=== PATIENT | female | born 1980 | race Caucasian/White ===

== ENCOUNTER 2023-04-20 23:25 | Emergency (ER) | payer MEDICAID ==
[~2023-04-20] VITALS: Ht 165.1 cm; Wt 90.9 kg
[2023-04-20 23:30] VITALS: TEMP 98.3
[2023-04-20] MEDS ORDERED: NS 1,000 ML IV ONE (23:45)
[2023-04-20] MEDS ORDERED: Ipratropium 0.02% Neb Soln 0.5 MG/2.5 ML UD IH ONE (23:45)
[2023-04-20] MEDS ORDERED: dexAMETHasone 10 MG/ML VIAL IV ONE (23:45)
[2023-04-20] MEDS ORDERED: Albuterol 0.083% Neb Soln 2.5 MG/3 ML UD IH ONE (23:45)
[2023-04-20 23:54] LABS: BASO # 0.1 K/mm3 (0.0-0.2); EOS # 0.4 K/mm3 (0.0-0.7); EOS % 5.7 % (0.0-4.0); GRAN # 4.6 K/mm3 (1.4-6.5); GRAN % 63.2 % (42.2-75.2); HEMATOCRIT 39.8 % (37.0-47.0); LYMPH # 1.8 K/mm3 (1.2-3.4); LYMPH % 24.1 % (20.0-51.0); MEAN CELL VOLUME 90 fl (80.0-100.0); MEAN CORPUSCULAR HEMOGLOBIN 29 pg (27-31); MEAN CORPUSCULAR HGB CONC 33 g/dl (33.0-37.0); MEAN PLATELET VOLUME 10.3 fl (7.4-10.4); MONO # 0.4 K/mm3 (0.1-0.6); MONO % 5.9 % (1.7-9.3); PLATELET COUNT 257 K/mm3 (130-400); RED BLOOD COUNT 4.44 M/mm3 (4.10-5.30); REDCELL DISTRIBUTION WIDTH-CV 12.4 % (11.5-14.5)
[2023-04-21] MEDS ORDERED: Albuterol 90 MCG/PUFF 8 GM MDI IH ONE (00:15)
[2023-04-21 00:19] LABS: ALANINE AMINOTRANSFERASE 23 U/L (0-55); ALBUMIN 3.7 gm/dL (3.5-5.0); ALKALINE PHOSPHATASE 107 U/L (40-150); ANION GAP 11 mmol/L (7-16); AST,SGOT 20 U/L (5-34); BILIRUBIN,TOTAL 0.4 mg/dL (0.2-1.2); BLOOD UREA NITROGEN 8 mg/dL (7-19); CALCIUM 9.5 mg/dL (8.4-10.2); CARBON DIOXIDE 21 mmol/L (22-29); CHLORIDE 107 mmol/L (98-107); CREATININE, serum 0.85 mg/dL (0.57-1.11); GLUCOSE 69 mg/dL (70-99); POTASSIUM 4.5 mmol/L (3.5-4.5); SODIUM 139 mmol/L (136-145); TOTAL PROTEIN 7.6 gm/dL (6.2-8.1)
[2023-04-21 00:25] LABS: TROPONIN-I < 0.010 ng/mL (0.00-0.033)
[2023-04-21 00:36] LABS: COLLECTION METHOD CLEAN CATCH
[2023-04-21 00:48] LABS: PH 8.5 (5.0-8.5); SQUAMOUS EPITHELIAL 0-2 /hpf (0-10); URINE APPEARANCE Clear (CLEAR/HAZY); URINE BACTERIA None Seen /hpf (NONE SEEN); URINE BLOOD Negative (NEGATIVE); URINE COLOR Yellow (YELLOW); URINE GLUCOSE Negative (NEGATIVE); URINE KETONE TRACE (NEGATIVE); URINE NITRATE Negative (NEGATIVE); URINE PROTEIN(semi-quant) Negative (NEGATIVE); URINE RBC 0-2 /hpf (0-2)
[2023-04-21 01:02] VITALS: BP 162/98; PULSE 110
[2023-04-21] MEDS ORDERED: Albuterol/Ipratropium 3 MG-0.5 MG/3 ML Neb Soln IH SCH (07:00)
[2023-04-22] MEDS ORDERED: Albuterol/Ipratop Respimat **** subs to Albuterol/Ipratrop Nebule IH SCH (09:00)
== END 2023-04-21 01:02 | disposition home or self-care (01) ==
LOC: COL.ER 23:25
PROVIDERS: Emergency Medicine
DX: J45.901 Unspecified asthma with (acute) exacerbation (principal); Z87.891 Personal history of nicotine dependence
CPT/HCPCS: J1100

== ENCOUNTER 2024-01-08 10:45 | Emergency (ER) | payer MEDICAID ==
[~2024-01-08] VITALS: Ht 165.1 cm; Wt 90.9 kg
[2024-01-08 10:49] VITALS: TEMP 99.4
[2024-01-08] MEDS ORDERED: NS 1,000 ML IV ONE (11:30)
[2024-01-08] MEDS ORDERED: Ondansetron 4 MG/2 ML VIAL IV ONE (11:45)
[2024-01-08] MEDS ORDERED: Morphine 4 MG/ML VIAL IV ONE (11:45)
[2024-01-08 12:19] LABS: ALBUMIN 3.6 g/dL (3.5-5.0); BILIRUBIN,TOTAL 0.7 mg/dL (0.2-1.2); CALCIUM 8.9 mg/dL (8.4-10.2); CREATININE, serum 0.94 mg/dL (0.57-1.11); POTASSIUM 3.6 mEq/L (3.5-4.5); TOTAL PROTEIN 6.5 g/dl (6.2-8.1)
[2024-01-08] MEDS ORDERED: Dextrose 50% Water 25 GM/50 ML SYRINGE IV ONE (13:00)
[2024-01-08 13:01] LABS: HEMATOCRIT 37.5 % (37.0-47.0); HEMOGLOBIN 12.8 g/dl (12.5-16.0); MEAN CELL VOLUME 89 fl (80.0-100.0); MEAN CORPUSCULAR HEMOGLOBIN 31 pg (27-31); MEAN CORPUSCULAR HGB CONC 34 g/dl (33.0-37.0); PLATELET COUNT 251 K/mm3 (130-400)
[2024-01-08] MEDS ORDERED: Ketorolac 15 MG/ML VIAL IV ONE (13:15)
[2024-01-08 13:20] LABS: LYMPHOCYTE 4 % (20.0-51.0); NEUTROPHILS 73 % (42.0-75.2); PLATELET ESTIMATE NORMAL (NORMAL)
[2024-01-08 13:21] LABS: BAND 17 % (0-10)
[2024-01-08] MEDS ORDERED: Iohexol 300 - 100 ML VIAL IV ONE (13:49)
[2024-01-08] MEDS ORDERED: NS 100 ML IV SCH (13:50)
[2024-01-08] MEDS ORDERED: DOXYCYCLINE 10100 MG PO (14:39)
[2024-01-08] MEDS ORDERED: cefTRIAXone 1 G in Water For Injection,Sterile 10 ML IV ONE (14:45)
[2024-01-08 14:53] VITALS: BP 106/77; PULSE 94
== END 2024-01-08 14:54 | disposition home or self-care (01) ==
LOC: COL.ER 10:45
PROVIDERS: Personal Emergency Response Attendant
DX: R11.10 Vomiting, unspecified (principal); J18.9 Pneumonia, unspecified organism; E11.9 Type 2 diabetes mellitus without complications
CPT/HCPCS: J0696; J1885; J2405; J7030; Q9967